=== PATIENT | female | born 1950 | race Caucasian/White ===

== ENCOUNTER 2017-07-13 10:59 | Inpatient (IN) | payer MEDICARE, OTHER ==
[~2017-07-13] VITALS: Ht 172.7 cm; Wt 66.8 kg
[~2017-07-13 10:59] MED LIST: GLYCOPYRROLATE 0.2MG/1ML ONE; METOPROLOL 1 MG/ML, 5ML ONE; NEOSTIGMINE 1 MG/ML, 10ML ONE; ONDANSETRON 2MG/ML, 2ML ONE; PROPOFOL 10 MG/ML, 20ML ONE; ROCURONIUM 10 MG/ML ONE
[2017-07-13 13:46] VITALS: BP 125/85
[2017-07-13] MEDS ORDERED: LACTATED RINGERS 1,000 ML IV SCH (13:46)
[2017-07-13] MEDS ORDERED: LEVO88TA32 PO (13:46)
[2017-07-13] MEDS ORDERED: CEPH-368 PO (13:46)
[2017-07-13] MEDS ORDERED: PLEASE ENTER HEIGHT AND WEIGHT MC SCH (14:00)
[2017-07-13 14:13] LABS: HEMATOCRIT 39.5 % (34.6-47.8); HEMOGLOBIN 13.4 g/dL (11.7-16.4); WHITE BLOOD COUNT 7.3 x10^3/uL (3.4-10)
[2017-07-13 14:25] LABS: BLOOD UREA NITROGEN 7 mg/dL (7-18)
[2017-07-13] MEDS ORDERED: BUPIVACAINE/PF-EPI 0.5% 1:200K ONE (16:12)
[2017-07-13] MEDS ORDERED: BACITRACIN 50,000 UNIT ONE (16:12)
[2017-07-13] MEDS ORDERED: THROMBIN 5,000 UNIT VIAL TP ONE (16:12)
[2017-07-13] MEDS ORDERED: FENTANYL PF 100 MCG/2ML ONE ×3 (16:16→18:06)
[2017-07-13] MEDS ORDERED: CEFUROXIME 1.5 GM ONE (16:19)
[2017-07-13] MEDS ORDERED: OXYcodone 5 MG/5 ML ORAL.SOL UDC PO PRN (17:00)
[2017-07-13] MEDS ORDERED: HYDROmorphone 1 MG/ML, 1ML IV PRN (17:00)
[2017-07-13] MEDS ORDERED: EPHEDRINE 50 MG/ML, 1ML IVPush PRN (17:00)
[2017-07-13] MEDS ORDERED: ALBUTEROL SULFATE 2.5 MG/3 ML NPPB PRN (17:00)
[2017-07-13] MEDS ORDERED: hydrALAzine 20 MG/ML, 1ML IV PRN (17:00)
[2017-07-13] MEDS ORDERED: FENTANYL PF 100 MCG/2ML IV PRN (17:00)
[2017-07-13] MEDS ORDERED: ONDANSETRON 2MG/ML, 2ML IVPush PRN (17:00)
[2017-07-13] MEDS ORDERED: ACETAMINOPHEN 325 MG TABLET PO PRN (17:00)
[2017-07-13] MEDS ORDERED: METOPROLOL 1 MG/ML, 5ML IV PRN (17:00)
[2017-07-13] MEDS ORDERED: LABETALOL 5MG/ML, 20ML IV PRN (17:00)
[2017-07-13] MEDS ORDERED: PROMETHAZINE 25 MG/ML, 1ML IV PRN (17:00)
[2017-07-13] MEDS ORDERED: VANCOMYCIN 1,000 MG ONE (17:01)
[2017-07-13] MEDS ORDERED: MAGNESIUM HYDROXIDE 8%, 30ML UDC PO PRN (18:00)
[2017-07-13] MEDS ORDERED: HYDROmorphone 2 MG/ML, 1ML IV PRN (18:00)
[2017-07-13] MEDS ORDERED: OXYcodone/APAP 5/325MG TABLET PO PRN (18:00)
[2017-07-13] MEDS ORDERED: VANCOMYCIN PER PHARMACY MC SCH (18:00)
[2017-07-13] MEDS ORDERED: BISACODYL 10 MG SUPP PR PRN (18:00)
[2017-07-13] MEDS ORDERED: DIPHENHYDRAMINE 50 MG/ML, 1ML IV PRN (18:00)
[2017-07-13] MEDS ORDERED: HYDROmorphone 1 MG/ML, 1ML ONE (18:06)
[2017-07-13] MEDS: POTASSIUM CHLORIDE 20 MEQ in SODIUM CHLORIDE 0.9% 1,000 ML IV SCH (20:58)
[2017-07-13] MEDS ORDERED: PHARMACOKINETIC CONSULTATION MC ONE (21:00)
[2017-07-13] MEDS ORDERED: PHARMACOKINETIC MONITORING MC PRN (21:00)
[2017-07-14] MEDS: CEFUROXIME 1.5 GM in SODIUM CHLORIDE 0.9% 50 ML IVPB SCH ×2 (00:42→08:31)
[2017-07-14 00:45] VITALS: BP 109/68
[2017-07-14 04:07] VITALS: BP 123/73
[2017-07-14] MEDS: VANCOMYCIN PMX 1GM/200ML 200 ML IVPB SCH ×2 (05:33→16:59)
[2017-07-14 06:15] LABS: HEMATOCRIT 34.1 % (34.6-47.8); HEMOGLOBIN 11.5 g/dL (11.7-16.4); WHITE BLOOD COUNT 7.1 x10^3/uL (3.4-10)
[2017-07-14 06:16] LABS: BLOOD UREA NITROGEN 6 mg/dL (7-18)
[2017-07-14 06:42] VITALS: BP 134/82
[2017-07-14] MEDS: POTASSIUM CHLORIDE 20 MEQ in SODIUM CHLORIDE 0.9% 1,000 ML IV SCH ×2 (08:30→20:35)
[2017-07-14] MEDS: SENNA/DOCUSATE TABLET PO SCH (08:31)
[2017-07-14] MEDS: ONDANSETRON 2MG/ML, 2ML IV PRN ×2 (08:48→16:59)
[2017-07-14] MEDS ORDERED: LEVOTHYROXINE 88 MCG TABLET PO SCH (09:00)
[2017-07-14] MEDS ORDERED: LOVOXYL PO SCH (10:30)
[2017-07-14 12:19] VITALS: BP 126/78
[2017-07-14] MEDS: ERTAPENEM 1 GM in SODIUM CHLORIDE 0.9% 50 ML IV SCH (16:04)
[2017-07-14 19:06] VITALS: BP 146/87
[2017-07-14] MEDS: OXYcodone/APAP 5/325MG TABLET PO PRN (19:26)
[2017-07-15 02:05] VITALS: BP 111/71
[2017-07-15] MEDS: VANCOMYCIN PMX 1GM/200ML 200 ML IVPB SCH ×2 (05:16→17:29)
[2017-07-15] MEDS: LEVOTHYROXINE 88 MCG TABLET HOMEMEDPO SCH (05:17)
[2017-07-15 06:02] LABS: HEMATOCRIT 32.5 % (34.6-47.8); HEMOGLOBIN 10.9 g/dL (11.7-16.4); WHITE BLOOD COUNT 5.5 x10^3/uL (3.4-10)
[2017-07-15 06:21] LABS: ASPARTATE AMINO TRANSFERASE 10 U/L (15-37); BLOOD UREA NITROGEN 5 mg/dL (7-18)
[2017-07-15 08:07] VITALS: BP 137/89
[2017-07-15] MEDS: SENNA/DOCUSATE TABLET PO SCH (09:09)
[2017-07-15] MEDS: POTASSIUM CHLORIDE 20 MEQ in SODIUM CHLORIDE 0.9% 1,000 ML IV SCH ×2 (09:09→19:28)
[2017-07-15 14:06] VITALS: BP 147/85
[2017-07-15 18:59] VITALS: BP 149/88
[2017-07-15] MEDS: ERTAPENEM 1 GM in SODIUM CHLORIDE 0.9% 50 ML IV SCH (19:02)
[2017-07-16 01:27] VITALS: BP 150/79
[2017-07-16] MEDS: LEVOTHYROXINE 88 MCG TABLET HOMEMEDPO SCH (04:55)
[2017-07-16] MEDS: VANCOMYCIN PMX 1GM/200ML 200 ML IVPB SCH (04:55)
[2017-07-16 05:48] LABS: HEMATOCRIT 33.3 % (34.6-47.8); HEMOGLOBIN 11.4 g/dL (11.7-16.4); WHITE BLOOD COUNT 5.2 x10^3/uL (3.4-10)
[2017-07-16] MEDS: OXYcodone/APAP 5/325MG TABLET PO PRN (06:01)
[2017-07-16] MEDS: POTASSIUM CHLORIDE 20 MEQ in SODIUM CHLORIDE 0.9% 1,000 ML IV SCH (06:02)
[2017-07-16 06:37] VITALS: BP 139/77
[2017-07-16 06:56] LABS: BLOOD UREA NITROGEN 5 mg/dL (7-18)
[2017-07-16] MEDS: SENNA/DOCUSATE TABLET PO SCH (08:18)
[2017-07-16] MEDS ORDERED: DAPTOMYCIN 400 MG in SODIUM CHLORIDE 0.9% 100 ML IV SCH (08:30)
[2017-07-16] MEDS ORDERED: DAPTOMYCIN 400 MG in SODIUM CHLORIDE 0.9% 100 ML IV ONE (09:00)
[2017-07-16] MEDS: ONDANSETRON 2MG/ML, 2ML IV PRN (10:18)
[2017-07-16] MEDS ORDERED: OXYC-302 PO (12:52)
[2017-07-16] MEDS ORDERED: ONDA4TAB7 PO (12:52)
[2017-07-16] MEDS ORDERED: miralax PO (12:54)
== END 2017-07-16 13:11 | disposition home or self-care (01) | DRG 907 ==
LOC: ORIP 12:08 → 4NOR 20:13
PROVIDERS: ADMIT Neurological Surgery; ATTEND Neurological Surgery
PROC: 0NB10ZZ Excision of Frontal Bone, Open Approach (ICD-10-PCS; principal; 2017-07-16)
DX: T86.832 Bone graft infection (principal); E43 Unspecified severe protein-calorie malnutrition; E03.9 Hypothyroidism, unspecified; D63.8 Anemia in other chronic diseases classified elsewhere; J32.9 Chronic sinusitis, unspecified; E78.00 Pure hypercholesterolemia, unspecified; M19.90 Unspecified osteoarthritis, unspecified site; E07.9 Disorder of thyroid, unspecified; Z68.22 Body mass index [BMI] 22.0-22.9, adult
CPT/HCPCS: 36415; 71010; 80048; 80053; 81003; 82550; 85025; 85610; 85651; 85730; 86140; 87015; 87070; 87075; 87077; 87102; 87116; 87186; 87205; 87206; 93005; J0697; J0878; J1170; J1335; J2405; J2704; J2710; J3010; J3370; J3480; J3490; J7030; J7120

== ENCOUNTER → 2017-07-20 | Outpatient (CLI) | payer MEDICARE, OTHER ==
[~2017-07-20] MED LIST changes: +CEPH-368 PO; -GLYCOPYRROLATE 0.2MG/1ML ONE; +LEVO88TA32 PO; -METOPROLOL 1 MG/ML, 5ML ONE; -NEOSTIGMINE 1 MG/ML, 10ML ONE; +ONDA4TAB7 PO; -ONDANSETRON 2MG/ML, 2ML ONE; +OXYC-302 PO; -PROPOFOL 10 MG/ML, 20ML ONE; -ROCURONIUM 10 MG/ML ONE; +miralax PO
== END | disposition home or self-care (01) ==
LOC: RAD 09:58
PROVIDERS: ATTEND Internal Medicine Infectious Disease
DX: Z45.2 Encounter for adjustment and management of vascular access device (principal); M86.68 Other chronic osteomyelitis, other site
CPT/HCPCS: 36569; 76937; 77001; C1751

== ENCOUNTER → 2018-09-09 | Outpatient (CLI) | payer MEDICARE, OTHER ==
[~2018-09-09] MED LIST changes: -LEVO88TA32 PO; +LEVO88TA43 PO
== END | disposition home or self-care (01) ==
LOC: RAD 13:23
PROVIDERS: ATTEND Internal Medicine Infectious Disease
DX: T85.79XA Infection and inflammatory reaction due to other internal prosthetic devices, implants and grafts, initial encounter (principal); Y83.8 Other surgical procedures as the cause of abnormal reaction of the patient, or of later complication, without mention of misadventure at the time of the procedure; Y92.89 Other specified places as the place of occurrence of the external cause
CPT/HCPCS: 36569; 76937; 77001; C1751